=== PATIENT | male | born 1960 | race Caucasian/White ===

== ENCOUNTER 2016-11-19 13:53 | Day surgery (SDC) | payer OTHER ==
[~2016-11-19] VITALS: Ht 180.3 cm; Wt 88.0 kg
[~2016-11-19 13:53] MED LIST: 0.9% Sodium Chloride 1,000 ML IV PRN; OMEP20CA11 PO; Sodium Chloride LOK Flush 10 mL Syringe IV PRN; fentaNYL-PF 50 mCg/mL 2 mL Inj IVPUSH PRN
[2016-11-19 15:00] VITALS: BP 132/86; PULSE 71; RESP 16; O2SAT 97
--- NOTE | 2016-11-19 16:57 | PCM.ENDEGD ---
EGD Date of Service: Nov 19, 2016 Physician Ankit Giles MD Pre Procedure Diagnosis: Gillespie's esophagus Post Procedure Dx & Findings: Gillespie's esophagus Procedure Esophagogastroduodenoscopy PROCEDURE IN DETAIL: After proper sedation, Olympus video endoscope was inserted into patient's mouth and esophagus was successfully intubated. Scope introduced esophagus. Esophagus showed normal shiny whitish mucosa consistent with squamous cell component. Z line was displaced from the GE junction. There was salmon- colored mucosa from 38-42 cm. Narrow banding done. No red flag noted. There was no ulcer or erosion mass or nodule. 4 quadrant biopsies obtained every 2 cm. Scope further advanced to the stomach. Stomach showed normal shiny mucosa with normal appearing rugae folds without any ulcer mass erosion. Cardia fundus body antrum pylorus were all visualized. Retroflexion was done. Stomach was easily inflated and deflatable using air. Scope further events to the distal duodenum. Duodenum revealed normal villous structures with normal appearing folds without any mass ulcer erosion. Impression Gillespie's esophagus status post biopsy per protocol Recommendation Continue PPI EGD 3 years. Presedation Assessment Risks and Benefits Informed consent was obtained from the patient after all risks and benefits including but not limited to drug reaction, infection, pain, bleeding, perforation, as well as alternatives were discussed. Patient monitoring Continuous pulse oximetry, cardiac monitoring, blood pressure monitoring, IV access, and oxygen at 2L per nasal cannula. Periprocedural Fentanyl: Fentanyl 100mcg Incrementally Midazolam: Midazolam 5mg Incrementally Complications There were no periprocedural complications identified. Post Procedure Plan Post Procedure Recommendations 1. Restrict activities today. 2. Resume normal activities in the morning. 3. Resume medications. 4. GERD behavioral modification: - Avoid fatty, acidic, spicy, large meals - Do not lie down after meals - Do not eat or drink anything for at least 2 1/2 hours before going to bed at night - Discontinue tobacco and alcohol - Decrease or avoid caffeine - Avoid chocolate and mints - Decrease weight - Avoid aspirin and non steroidal anti-inflammatory agents (NSAID) such as Aleve, Advil, Mobic, Naproxen, Ibuprofen, etc 5. Add proton pump inhibitor. Take 30 minutes before 1st meal of the day. 6. Patient informed of normal post procedure side effects as bloating, drowsiness, blood streaking in the stool 7. If gastric biopsy reveal H.pylori, continue with appropriate treatment 8. If small bowel biopsy reveals celiac, continue with appropriate treatment 9. Please don't hesitate to call me with any questions Ankit Giles MD Nov 19, 2016 16:57
[2016-11-19 16:58] VITALS: BP 111/74; PULSE 70; RESP 14; O2SAT 95
--- NOTE | 2016-11-19 16:59 | PCM.ENDCOL ---
Colonoscopy Date of Service: Nov 19, 2016 Physician Ankit Giles MD Pre Procedure Diagnosis: History of polyp Post Procedure Dx & Findings: Polyp hemorrhoids diverticuli poor prep Procedure Colonoscopy PROCEDURE IN DETAIL: Prep poor prep Withdrawal time 12 minutes After unremarkable rectal examination the Olympus video colonoscope was inserted patient's anal canal and was advanced to cecum. Landmarks were identified including the ileocecal valve and appendiceal orifice. Scope was withdrawn systematically. Visualized colonic mucosa showed healthy shiny mucosa with normal healthy-appearing vasculature. In the sigmoid colon, there was a 4 mm polyp which was removed completely using cold snare. In the sigmoid colon there were small diverticuli several. In the rectum retroflexion was done which showed hemorrhoids. Anal canal was inspected carefully on the way out and hemorrhoids noted. Impression Polyps 1 status post complete removal Poor prep Diverticuli History of polyp Hemorrhoids Recommendation Repeat colonoscopy in 12 month with myers prep Diverticular diet Presedation Assessment Risks and Benefits Informed consent was obtained from the patient after all risks and benefits including but not limited to drug reaction, infection, pain, bleeding, perforation, as well as alternatives were discussed. Patient monitoring Continuous pulse oximetry, cardiac monitoring, blood pressure monitoring, IV access, and oxygen at 2L per nasal cannula. Complications There were no periprocedural complications identified. Post Procedure Plan Post Procedure Recommendations 1. Restrict activities today. 2. Resume normal activities in the morning. 3. Resume medications. 4. Patient informed of normal post procedure side effects as bloating, drowsiness, blood streaking in the stool. 5. average risk CRCS. If colon polyps come back as: -Hyperplastic- can repeat colonoscopy in 10 years -Tubular adenoma- repeat colonoscopy in 5 years -Tubulovillous/villous adenoma- repeat colonoscopy in 3 years -If any dysplasia- return to clinic as soon as possible 6. Please don't hesitate to call me with any questions. Ankit Giles MD Nov 19, 2016 16:59
[2016-11-19 17:10] VITALS: BP 112/70; PULSE 63; RESP 16; O2SAT 97
--- NOTE | 2016-11-21 11:28 | PATH ---
SURGICAL PATHOLOGY Attending Physician:Ankit Giles M.D. CASE STATUS: Signed Out PATIENT NAME: BILL SINGH PID: [id number] : 1960 DATE COLLECTED:11/19/2016 00:00 SPECIMEN: 1: Esophagus, Biopsy 2: Colon, Biopsy CLINICAL HISTORY: 1. ESOPHAGUS BX 2. SIGMOID POLYP FINAL DIAGNOSIS: 1.ESOPHAGUS BIOPSY: SQUAMOCOLUMNAR MUCOSA WITH INTESTINAL METAPLASIA CONSISTENT WITH TOTH' S ESOPHAGUS, 5 OF 5 FRAGMENTS. NEGATIVE FOR DYSPLASIA AND MALIGNANCY. 2.SIGMOID COLON POLYP: HYPERPLASTIC POLYP. ICD10 CODE K22.70 K63.5 GROSS DESCRIPTION: The specimen is received in two formalin filled containers labeled with the patient's name. 1). The specimen is sublabeled "distal esophagus" and consists of multiple portions of tissue which aggregate to 0.5 x 0.5 x 0.2 CM. The specimen is entirely submitted in cassette 1A. 2). The specimen is sublabeled "sigmoid polyp" and consists of 2 portions of tissue which aggregate to 0.5 x 0.5 x 0.2 CM. The specimen is entirely submitted in cassette 2A. 11/20/2016 [facility] MICRO DESCRIPTION: See diagnosis. ICD-9 CODES: CPT CODES: 1: 71000 2: 94739 Electronically Signed Out Linda Corbin MD [facility] Pathology [facility], [place] [address] Technical component performed at [facility], [address] [place] [address] [address], [place], [address]
== END 2016-11-19 23:59 | disposition home or self-care (01) ==
LOC: END 13:53
PROVIDERS: ATTEND Internal Medicine
DX: Z12.11 Encounter for screening for malignant neoplasm of colon (principal); Z86.010 Personal history of colon polyps; D12.5 Benign neoplasm of sigmoid colon; K64.9 Unspecified hemorrhoids; K57.30 Diverticulosis of large intestine without perforation or abscess without bleeding; K22.70 Barrett's esophagus without dysplasia; B18.2 Chronic viral hepatitis C; K21.9 Gastro-esophageal reflux disease without esophagitis; E55.9 Vitamin D deficiency, unspecified; M65.4 Radial styloid tenosynovitis [de Quervain]; I10 Essential (primary) hypertension; F32.9 Major depressive disorder, single episode, unspecified; G89.29 Other chronic pain
CPT/HCPCS: 43239; 45385; 88305; 99153; G0500; J7030